=== PATIENT | female | born 1985 | race African-American/Black ===

== ENCOUNTER 2017-02-23 23:48 | Emergency (ER) | payer MEDICAID ==
[~2017-02-23] VITALS: Ht 167.6 cm; Wt 84.0 kg
[2017-02-24] MEDS ORDERED: PREDNISONE 20MG TABLET PO ONE (06:45)
[2017-02-24] MEDS ORDERED: DIPHENHYDRAMINE 50MG CAPSULE PO ONE (06:45)
[2017-02-24 06:48] VITALS: BP 120/72
== END 2017-02-24 07:36 | disposition home or self-care (01) ==
LOC: ER 23:48
DX: T78.40XA Allergy, unspecified, initial encounter (principal); L50.0 Allergic urticaria; I10 Essential (primary) hypertension; F12.10 Cannabis abuse, uncomplicated; Y92.89 Other specified places as the place of occurrence of the external cause
CPT/HCPCS: 99283; J7512; Q0163